=== PATIENT | female | born 1940 | race Caucasian/White ===

== ENCOUNTER → 2020-03-19 | Outpatient (CLI) | payer MEDICARE | END | disposition home or self-care (01) | LOC: RAH 12:43 | PROVIDERS: ATTEND Nurse Practitioner Adult Health | DX: E04.2 Nontoxic multinodular goiter (principal); E03.9 Hypothyroidism, unspecified | CPT/HCPCS: 76536 ==

== ENCOUNTER → 2023-02-22 | Outpatient (CLI) | payer MEDICARE | END | disposition home or self-care (01) | LOC: RAH 13:51 | PROVIDERS: ATTEND Physical Medicine & Rehabilitation | DX: M43.16 Spondylolisthesis, lumbar region (principal); M40.46 Postural lordosis, lumbar region; M54.51 Vertebrogenic low back pain; M48.061 Spinal stenosis, lumbar region without neurogenic claudication; M21.371 Foot drop, right foot | CPT/HCPCS: 72114 ==

== ENCOUNTER → 2023-03-07 | Outpatient (CLI) | payer MEDICARE | END | disposition home or self-care (01) | LOC: RAH 13:45 | PROVIDERS: ATTEND Physical Medicine & Rehabilitation | DX: M47.817 Spondylosis without myelopathy or radiculopathy, lumbosacral region (principal); M43.16 Spondylolisthesis, lumbar region; M48.07 Spinal stenosis, lumbosacral region; M41.86 Other forms of scoliosis, lumbar region; M54.51 Vertebrogenic low back pain; M21.372 Foot drop, left foot; M21.371 Foot drop, right foot; Z88.8 Allergy status to other drugs, medicaments and biological substances | CPT/HCPCS: 72148 ==

== ENCOUNTER → 2023-04-04 | Outpatient (CLI) | payer MEDICARE | END | disposition home or self-care (01) | LOC: RAH 08:48 | PROVIDERS: ATTEND Nurse Practitioner Adult Health | DX: Z12.31 Encounter for screening mammogram for malignant neoplasm of breast (principal); E04.2 Nontoxic multinodular goiter | CPT/HCPCS: 76536; 77067 ==

== ENCOUNTER → 2023-05-02 | Outpatient (CLI) | payer MEDICARE | END | disposition home or self-care (01) | LOC: RAH 09:48 | PROVIDERS: ATTEND Nurse Practitioner Adult Health | DX: N63.15 Unspecified lump in the right breast, overlapping quadrants (principal); R92.331 Mammographic heterogeneous density, right breast | CPT/HCPCS: 76641; 77065 ==

== ENCOUNTER → 2023-05-17 | Outpatient (CLI) | payer MEDICARE ==
[2023-05-17 09:53] LABS: INR <= 0.93 (0.85-1.15); PROTHROMBIN TIME 10.8 SEC (9.6-11.6)
[2023-05-17 09:54] LABS: PARTIAL THROMBOPLASTIN TIME 28.3 SEC (26.3-35.5)
== END | disposition home or self-care (01) ==
LOC: RAH 08:59
PROVIDERS: ATTEND Nurse Practitioner Adult Health
DX: N63.15 Unspecified lump in the right breast, overlapping quadrants (principal); C50.811 Malignant neoplasm of overlapping sites of right female breast; K52.9 Noninfective gastroenteritis and colitis, unspecified; E78.5 Hyperlipidemia, unspecified; E03.9 Hypothyroidism, unspecified; Z79.890 Hormone replacement therapy; Z85.3 Personal history of malignant neoplasm of breast
CPT/HCPCS: 19083; 85610; 85730; 88361; 36415; 88305; 88341; 88342; A4215 ×2; A4648

== ENCOUNTER → 2024-03-28 | Outpatient (CLI) | payer MEDICARE ==
--- NOTE | 2024-03-28 14:08 | HMCIMG ---
MR SPINAL CANAL, LUMBAR WO CON REASON: M48.061 Spinal stenosis, lumbar region without neurogenic claudication COMPARISON: None TECHNIQUE: Routine lumbar imaging protocol was performed FINDINGS: There is severe interspace narrowing at L4-5. There is also 9 to 10 mm anterior subluxation of L4 in relation to L5. There is moderate narrowing of the L1-2 interspace. Alignment appears otherwise normal. Axial images show severe spinal stenosis at L4-5, AP diameter is between 4 and 5 mm. There is also severe narrowing of the right L4-5 neural foramen. There are moderate degenerative changes posterior facets and ligamentum flavum. Remaining interspaces are widely patent. There are no other focal areas of spinal stenosis. There are no focal disc herniations. Stranding soft tissues appear unremarkable. IMPRESSION: 1. Degenerative narrowing of the L4-5 disc interspace, there is 1 cm anterior subluxation of L4 on L5, there are also degenerative changes in the posterior elements. 2. These findings result in severe spinal stenosis at L4-5, AP diameter between 4 and 5 mm, there is also severe narrowing of the right L4-5 neural foramen. 3. Degenerative changes elsewhere but no other areas of spinal stenosis or foraminal narrowing.
== END | disposition home or self-care (01) ==
LOC: RAH 13:05
PROVIDERS: ATTEND Physical Medicine & Rehabilitation
DX: M47.816 Spondylosis without myelopathy or radiculopathy, lumbar region (principal); M48.061 Spinal stenosis, lumbar region without neurogenic claudication; M43.16 Spondylolisthesis, lumbar region; M21.372 Foot drop, left foot; M51.369 Other intervertebral disc degeneration, lumbar region without mention of lumbar back pain or lower extremity pain; Z91.81 History of falling
CPT/HCPCS: 72148

== ENCOUNTER → 2024-05-03 | Outpatient (CLI) | payer MEDICARE ==
--- NOTE | 2024-05-03 10:52 | HMCIMG ---
DIAGNOSTIC MAMMOGRAM WITH TOMOSYNTHESIS HISTORY: HX OF BREAST CA COMPARISON: 04/04/2023 TECHNIQUE: Bilateral digital diagnostic mammogram was performed. No additional views were obtained. Tomosynthesis was performed.CAD was performed as well. FINDINGS: Parenchymal density: There are scattered areas of fibroglandular density. There is no evidence of a dominant mass, or suspicious microcalcification. There is no evidence of nipple retraction or skin thickening. There are surgical clips in the right to breast at the site of the lumpectomy, there is no evidence of residual or recurrent focal mass. IMPRESSION: 1. No evidence of a malignant process in either breast. The patient was entered into a reminder system with a target due date for their next mammogram. BI-RADS CATEGORY 2: BENIGN FINDINGS Recommend monthly self breast exam as well as annual clinical examination. A negative x-ray should not delay biopsy if a dominant or clinically suspicious mass is present, since 8-10% of cancers are not identified by mammography. Dense breasts particularly, may obscure an underlying neoplasm. Some of these may be detected clinically and therefore, clinical examination is an essential part of breast evaluation.
== END | disposition home or self-care (01) ==
LOC: RAH 09:54
PROVIDERS: ATTEND Internal Medicine Medical Oncology
DX: R92.323 Mammographic fibroglandular density, bilateral breasts (principal); C50.411 Malignant neoplasm of upper-outer quadrant of right female breast; Z85.3 Personal history of malignant neoplasm of breast
CPT/HCPCS: 77062; 77066